=== PATIENT | female | born 1950 | race Caucasian/White ===

== ENCOUNTER 2017-01-18 20:53 | Emergency (ER) | payer MEDICARE, OTHER ==
[~2017-01-18] VITALS: Ht 154.9 cm; Wt 72.7 kg
[~2017-01-18 20:53] MED LIST: ASPIR-LOW81 MG PO; BUFFERED ASPIR325 M1 PO; CALTRATE-600 W600 MG PO; CINNAMON PO; FISH OIL CONC1000 MG PO; IMDUR 30MG30 MG/TAB PO; INDERAL 20MG20 MG PO; LISINOPRIL PO; MVI PO; NEXIUM40 MG PO; NORCO 325 MG-51 TAB PO; SIMVASTATIN10 MG PO; TRIAMTERENE W/H1 CAP PO; VITAMIN B12 PO; ZOFRAN 4MG T4 MG/TAB PO
[2017-01-18 20:55] VITALS: TEMP 98.5
[2017-01-18] MEDS ORDERED: ASPIRIN 81M81 MG/TA2 PO (21:19)
[2017-01-18] MEDS ORDERED: PRILOSEC 20MG20 MG PO (21:20)
[2017-01-18] MEDS ORDERED: DITROPAN 5MG TAB5 MG PO (21:21)
[2017-01-18] MEDS ORDERED: DOXYCYCLINE HY100 MG PO (21:21)
[2017-01-18] MEDS ORDERED: CALCIUM CITRAT200 M2 (21:22)
[2017-01-18] MEDS ORDERED: PRESERVISION1 SGL PO (21:22)
[2017-01-18 21:55] VITALS: BP 158/82; PULSE 90
== END 2017-01-18 22:04 | disposition home or self-care (01) ==
LOC: COL.ER 20:53
DX: T23.132A Burn of first degree of multiple left fingers (nail), not including thumb, initial encounter (principal); X10.0XXA Contact with hot drinks, initial encounter; I10 Essential (primary) hypertension

== ENCOUNTER → 2017-06-28 | Outpatient (CLI) | payer MEDICARE, OTHER ==
[~2017-06-28] MED LIST changes: +ASPI325T6 PO; +ASPIRIN 81M81 MG/TA2 PO; +CALCIUM CITRAT200 M2 PO; +DITROPAN 5MG TAB5 MG PO; +DOXYCYCLINE HY100 MG PO; -FISH OIL CONC1000 MG PO; +FISH OIL CONCEN1 SG2 PO; -LISINOPRIL PO; +MEDROL 4MG DOSPA4 MG PO; +MULTIPLE VITAMI1 TA1 PO; -MVI PO; +PRESERVISION1 SGL PO; +PRILOSEC 20MG20 MG PO; -SIMVASTATIN10 MG PO; +ZESTRIL 20MG TA20 MG PO; +ZOCOR 10MG10 MG PO
== END ==
LOC: MC.RAD 06-04 14:00
DX: Z12.31 Encounter for screening mammogram for malignant neoplasm of breast (principal)

== ENCOUNTER → 2017-08-16 | Outpatient (CLI) | payer MEDICARE | LOC: COL.VAS 15:15 | DX: M79.604 Pain in right leg (principal); I82.441 Acute embolism and thrombosis of right tibial vein; R79.1 Abnormal coagulation profile ==

== ENCOUNTER → 2017-08-16 | Outpatient (CLI) | payer MEDICARE | LOC: COL.LAB 13:39 | DX: M79.89 Other specified soft tissue disorders (principal) ==

== ENCOUNTER 2017-08-28 22:02 | Emergency (ER) | payer MEDICARE ==
[~2017-08-28] VITALS: Ht 152.4 cm; Wt 77.3 kg
[2017-08-28 22:06] VITALS: BP 130/58; PULSE 74; TEMP 97.7
[2017-08-28 22:40] LABS: COLLECTION METHOD CLEAN CATCH
[2017-08-28 22:49] LABS: PH 6 (5-8); SQUAMOUS EPITHELIAL None Seen /hpf; URINE APPEARANCE Hazy; URINE BACTERIA Rare /hpf; URINE BILIRUBIN Negative (NEGATIVE); URINE BLOOD 3+ (NEGATIVE); URINE COLOR Amber; URINE GLUCOSE Negative (NEGATIVE); URINE KETONE Negative (NEGATIVE); URINE LEUKOCYTE ESTERASE Negative (NEGATIVE); URINE NITRATE Negative (NEGATIVE); URINE PROTEIN(semi-quant) 2+ (NEGATIVE); URINE RBC >50 /hpf; URINE UROBILINOGEN Negative (NEGATIVE)
[2017-08-28 23:00] LABS: BASO # 0.1 (0.0-0.2); BASO % 0.9 % (0.0-2.0); EOS # 0.3 (0.0-0.7); EOS % 3.7 % (0-4.0); GRAN # 4.4 (1.4-6.5); GRAN % 58.5 % (42.2-75.2); HEMATOCRIT 39.1 % (37.0-47.0); HEMOGLOBIN 13.5 g/dl (12.5-16.0); LYMPH % 26.5 % (20.0-51.0); MEAN CELL VOLUME 88 fl (80.0-100.0); MEAN CORPUSCULAR HEMOGLOBIN 30 pg (27.0-31.0); MEAN CORPUSCULAR HGB CONC 35 g/dl (33.0-37.0); MEAN PLATELET VOLUME 10.2 fl (7.4-10.4); MONO # 0.8 (0.1-0.6); MONO % 10.1 % (1.7-9.3); PLATELET COUNT 280 K/mm3 (130-400); RED BLOOD COUNT 4.44 M/mm3 (4.10-5.30); REDCELL DISTRIBUTION WIDTH-CV 12.7 % (11.5-14.5)
[2017-08-28 23:12] LABS: ALBUMIN 4.4 gm/dL (3.5-5.0); BILIRUBIN,TOTAL 0.3 mg/dL (0.0-1.0); CALCIUM 9.1 mg/dL (8.4-10.2); CREATININE, serum 0.85 mg/dL (0.52-1.25); POTASSIUM 3.7 mmol/L (3.4-5.0); TOTAL PROTEIN 7.4 gm/dL (6.4-8.2)
== END 2017-08-29 00:05 | disposition home or self-care (01) ==
LOC: COL.ER 22:02
PROVIDERS: Emergency Medicine
DX: R31.9 Hematuria, unspecified (principal); I10 Essential (primary) hypertension; E66.9 Obesity, unspecified; Z86.73 Personal history of transient ischemic attack (TIA), and cerebral infarction without residual deficits; Z86.718 Personal history of other venous thrombosis and embolism; Z79.82 Long term (current) use of aspirin; Z79.01 Long term (current) use of anticoagulants; Z79.52 Long term (current) use of systemic steroids
CPT/HCPCS: J7030

== ENCOUNTER 2018-04-24 08:36 | Emergency (ER) | payer MEDICARE ==
[~2018-04-24] VITALS: Ht 152.4 cm; Wt 81.8 kg
[~2018-04-24 08:36] MED LIST changes: +B COMPLEX #11 TAB PO; +CALCIUM CITRAT950 MG PO; +CIPRO 100MG TA100 MG PO; +COUMADIN 1MG1 MG/TAB; +DIOVAN 160MG160 MG PO; +DYAZIDE 25 MG-31 CAP PO; +PROLIA60 MG/ML SQ; +QUESTRAN4 GM/9 GM PO; +TYLENOL PM EXTR1 TA1 PO; +VITAMIN D31000 I1 PO; +XANAX .25M0.25 MG/TA PO; +ZOCOR 40MG40 MG PO
[2018-04-24 08:39] VITALS: TEMP 98.3
[2018-04-24] MEDS ORDERED: WELLBUTRIN SR150 M1 PO (08:55)
[2018-04-24] MEDS ORDERED: ATACAND32 MG PO (08:58)
[2018-04-24 09:31] LABS: BASO # 0.1 (0.0-0.2); EOS # 0.2 (0.0-0.7); EOS % 2.1 % (0-4.0); GRAN % 70.1 % (42.2-75.2); HEMATOCRIT 37.8 % (37.0-47.0); HEMOGLOBIN 12.6 g/dl (12.5-16.0); LYMPH # 1.4 (1.2-3.4); LYMPH % 19.3 % (20.0-51.0); MEAN CELL VOLUME 91 fl (80.0-100.0); MEAN CORPUSCULAR HEMOGLOBIN 30 pg (27.0-31.0); MEAN CORPUSCULAR HGB CONC 33 g/dl (33.0-37.0); MEAN PLATELET VOLUME 9.9 fl (7.4-10.4); MONO # 0.5 (0.1-0.6); MONO % 7.1 % (1.7-9.3); PLATELET COUNT 298 K/mm3 (130-400); RED BLOOD COUNT 4.15 M/mm3 (4.10-5.30); REDCELL DISTRIBUTION WIDTH-CV 13.6 % (11.5-14.5)
[2018-04-24 09:41] LABS: ALANINE AMINOTRANSFERASE 30 U/L (9-52); ALBUMIN 4.2 gm/dL (3.5-5.0); ALKALINE PHOSPHATASE 72 U/L (50-136); ANION GAP 7 mmol/L (7-16); AST,SGOT 28 U/L (15-37); BILIRUBIN,TOTAL 0.4 mg/dL (0.0-1.0); BLOOD UREA NITROGEN 16 mg/dL (7-17); CALCIUM 9.9 mg/dL (8.4-10.2); CARBON DIOXIDE 30 mmol/L (22-30); CHLORIDE 100 mmol/L (98-107); GLUCOSE 87 mg/dL (74-106); POTASSIUM 4.2 mmol/L (3.4-5.0); SODIUM 137 mmol/L (137-145); TOTAL PROTEIN 7.4 gm/dL (6.4-8.2)
[2018-04-24 09:54] LABS: TROPONIN-I < 0.012 ng/mL (0.000-0.034)
[2018-04-24 10:24] LABS: COLLECTION METHOD CLEAN CATCH
[2018-04-24 10:35] LABS: PH 8 (5-8); SQUAMOUS EPITHELIAL 0-2 /hpf; URINE APPEARANCE Clear; URINE BACTERIA None Seen /hpf; URINE BILIRUBIN Negative (NEGATIVE); URINE BLOOD Negative (NEGATIVE); URINE COLOR Yellow; URINE GLUCOSE Negative (NEGATIVE); URINE KETONE Negative (NEGATIVE); URINE LEUKOCYTE ESTERASE Negative (NEGATIVE); URINE NITRATE Negative (NEGATIVE); URINE PROTEIN(semi-quant) Negative (NEGATIVE); URINE RBC 0-2 /hpf; URINE UROBILINOGEN Negative (NEGATIVE)
[2018-04-24] MEDS ORDERED: ANTIVERT 12.512.5 MG PO (14:29)
[2018-04-24 15:19] VITALS: BP 142/69; PULSE 80
== END 2018-04-24 15:22 | disposition home or self-care (01) ==
LOC: COL.ER 08:36
PROVIDERS: Emergency Medicine
DX: R42 Dizziness and giddiness (principal); I10 Essential (primary) hypertension; E78.5 Hyperlipidemia, unspecified; Z86.73 Personal history of transient ischemic attack (TIA), and cerebral infarction without residual deficits
CPT/HCPCS: A9585; J7030

== ENCOUNTER → 2018-07-08 | Outpatient (CLI) | payer MEDICARE ==
[~2018-07-08] MED LIST changes: +ANTIVERT 12.512.5 MG PO; +ATACAND32 MG PO; +WELLBUTRIN SR150 M1 PO
== END ==
LOC: MC.RAD 06-30 08:40
DX: Z12.31 Encounter for screening mammogram for malignant neoplasm of breast (principal)

== ENCOUNTER → 2018-10-21 | Outpatient (CLI) | payer MEDICARE | LOC: COL.RAD 10:00 | DX: C64.1 Malignant neoplasm of right kidney, except renal pelvis (principal); R93.421 Abnormal radiologic findings on diagnostic imaging of right kidney; Z90.5 Acquired absence of kidney ==

== ENCOUNTER → 2019-07-23 | Outpatient (CLI) | payer MEDICARE | LOC: MC.RAD 10:00 | DX: Z12.31 Encounter for screening mammogram for malignant neoplasm of breast (principal) ==

== ENCOUNTER → 2019-11-19 | Outpatient (CLI) | payer MEDICARE | LOC: COL.RAD 10:30 | DX: C65.1 Malignant neoplasm of right renal pelvis (principal) ==

== ENCOUNTER → 2019-11-30 | Outpatient (CLI) | payer MEDICARE | LOC: COL.RAD 10:03 | DX: Z01.812 Encounter for preprocedural laboratory examination (principal); C64.1 Malignant neoplasm of right kidney, except renal pelvis; R93.421 Abnormal radiologic findings on diagnostic imaging of right kidney; N28.89 Other specified disorders of kidney and ureter; K44.9 Diaphragmatic hernia without obstruction or gangrene; Z90.49 Acquired absence of other specified parts of digestive tract; Z98.890 Other specified postprocedural states | CPT/HCPCS: Q9967 ==

== ENCOUNTER → 2020-07-27 | Outpatient (CLI) | payer MEDICARE | LOC: MC.RAD 08:04 | DX: Z12.31 Encounter for screening mammogram for malignant neoplasm of breast (principal) ==

== ENCOUNTER → 2020-09-01 | Outpatient (CLI) | payer MEDICARE ==
[~2020-09-01] MED LIST changes: +ASPIRIN E.C. 8181 MG PO; +FLONASEALLERGY NS; +GLUCOPHAGE1000 MG PO; +LIPITOR 40MG TA40 MG PO; +NORVASC2.5 MG PO; +OMEGA-3 1000 MG1 CAP PO; +PROAIR HFA0.09 MG/AC IH; +SENOKOT S 50 MG1 TAB PO; +ULTRAM 50MG TAB50 MG PO; +VITAMIN B COMPL1 T16 PO; +XARELTO20 MG PO
== END ==
LOC: COL.RAD 10:30
DX: E21.3 Hyperparathyroidism, unspecified (principal)
CPT/HCPCS: A9500

== ENCOUNTER → 2020-12-23 | Outpatient (CLI) | payer MEDICARE | LOC: COL.RAD 12-22 14:15 | DX: Z85.528 Personal history of other malignant neoplasm of kidney (principal) ==

== ENCOUNTER 2021-03-20 12:45 | Outpatient (RCR) | payer MEDICARE | END 2021-04-24 08:38 | disposition home or self-care (01) | LOC: WSOT 12:45 | DX: M35.7 Hypermobility syndrome (principal) ==

== ENCOUNTER → 2021-10-27 | Outpatient (CLI) | payer MEDICARE | LOC: COL.RAD 09-27 07:30 | DX: M47.816 Spondylosis without myelopathy or radiculopathy, lumbar region (principal); M51.36 Other intervertebral disc degeneration, lumbar region; Z85.528 Personal history of other malignant neoplasm of kidney | CPT/HCPCS: A9575 ==

== ENCOUNTER → 2021-12-29 | Outpatient (CLI) | payer MEDICARE ==
[~2021-12-29] MED LIST changes: +PAXLOVID CO-PA1 EACH PO; +TESSALON P100 MG/CAP PO
== END ==
LOC: COL.RAD 14:15
DX: C64.1 Malignant neoplasm of right kidney, except renal pelvis (principal); Z90.5 Acquired absence of kidney

== ENCOUNTER → 2022-01-16 | Outpatient (CLI) | payer MEDICARE | LOC: MC.RAD 11:22 | DX: Z12.31 Encounter for screening mammogram for malignant neoplasm of breast (principal) ==

== ENCOUNTER → 2022-01-16 | Outpatient (CLI) | payer MEDICARE | LOC: COL.RAD 10:56 | DX: Z85.528 Personal history of other malignant neoplasm of kidney (principal) ==

== ENCOUNTER → 2022-08-30 | Outpatient (CLI) | payer MEDICARE | LOC: COL.RAD 09:00 | DX: M79.671 Pain in right foot (principal); M79.672 Pain in left foot | CPT/HCPCS: J3301; Q9967 ==

== ENCOUNTER → 2022-11-07 | Outpatient (CLI) | payer MEDICARE | LOC: COL.RAD 10:47 | DX: C64.1 Malignant neoplasm of right kidney, except renal pelvis (principal); N39.46 Mixed incontinence; N27.0 Small kidney, unilateral ==

== ENCOUNTER 2023-10-30 15:43 | Emergency (ER) | payer MEDICARE ==
[~2023-10-30] VITALS: Ht 147.3 cm; Wt 86.4 kg
[~2023-10-30 15:43] MED LIST changes: +CALCIUM CITRAT950 MG; +COZAAR 50MG50 MG/TAB PO; +FOLIC ACID0.8 MG PO; +GLUCOPHAGE500 MG/TAB PO; +PHARMASSURE ZIN50 MG PO; +PREDNISONE20 MG PO; +PRESERVISION A1 EAC3 PO; +PREVAGEN; +PROTONIX 40MG T40 MG PO; +REVIA 50MG TABL50 MG PO; +VITAMINC1000TA; +ZYRTEC ALLERGY10 MG PO; +[UNRECOGNIZED DRUG - OTHER] PO
[2023-10-30 15:49] VITALS: TEMP 98.1
[2023-10-30] MEDS ORDERED: Potassium Chloride 100 ML IV ONE (16:30)
[2023-10-30 16:54] LABS: ALBUMIN 2.8 g/dL (3.4-4.8); BILIRUBIN,TOTAL 0.5 mg/dL (0.2-1.2); CALCIUM 8.5 mg/dL (8.4-10.2); CREATININE, serum 1.11 mg/dL (0.57-1.11); MAGNESIUM 1.1 mg/dL (1.6-2.6); POTASSIUM 3.1 mEq/L (3.5-4.5); TOTAL PROTEIN 6.2 g/dl (6.2-8.1)
[2023-10-30] MEDS ORDERED: K-TAB10 PO (18:31)
[2023-10-30 18:39] VITALS: BP 126/74; PULSE 76
== END 2023-10-30 18:48 | disposition home or self-care (01) ==
LOC: COL.ER 15:43
PROVIDERS: Family Medicine
DX: E87.6 Hypokalemia (principal); Z79.01 Long term (current) use of anticoagulants
CPT/HCPCS: J3475; J3480

== ENCOUNTER 2024-01-10 12:42 | Outpatient (CLI) | payer MEDICARE ==
[~2024-01-10 12:42] MED LIST changes: +K-TAB10 PO; +REGLAN 10MG10 MG/TAB PO
[2024-01-10] MEDS ORDERED: Magnesium Sulfate 2 GM/50 ML IV SOLN IV SCH (13:00)
[2024-01-10 13:21] VITALS: BP 147/82; PULSE 76; TEMP 97.5
[2024-01-10] MEDS ORDERED: MAG-OX 400400 MG/TAB PO (13:23)
[2024-01-10 13:45] VITALS: BP 151/80; PULSE 77
[2024-01-10 14:19] VITALS: BP 152/82; PULSE 82
[2024-01-10 15:00] VITALS: BP 129/74; PULSE 82
[2024-01-10] MEDS ORDERED: NS Flush 25 ML IV Bag IV ONE (15:00)
[2024-01-10 15:15] VITALS: BP 132/74; PULSE 82
== END 2024-01-10 15:33 ==
LOC: EUO 12:42
DX: E83.42 Hypomagnesemia (principal)
CPT/HCPCS: J3475